=== PATIENT | male | born 1970 | race Caucasian/White ===

== ENCOUNTER 2019-09-25 07:17 | Day surgery (SDC) | payer BC ==
[~2019-09-25] VITALS: Ht 190.5 cm; Wt 105.6 kg
[~2019-09-25 07:17] MED LIST: Aspirin EC81 MG PO; Cleocin HCl150 MG PO; Diovan160 MG PO; Penlac6.6 ML; VALS80 PO; ZOLP10 PO; ZYRTEC10 M2 PO
== END 2019-09-25 09:32 | disposition home or self-care (01) ==
LOC: ORSCSDS 07:17
PROVIDERS: Internal Medicine Gastroenterology
PROC: 0DBM8ZX Excision of Descending Colon, Via Natural or Artificial Opening Endoscopic, Diagnostic (ICD-10-PCS; principal; 2019-09-25 08:30)
PROC: 0DBK8ZX Excision of Ascending Colon, Via Natural or Artificial Opening Endoscopic, Diagnostic (ICD-10-PCS; principal; 2019-09-25 08:30)
PROC: 0DBP8ZX Excision of Rectum, Via Natural or Artificial Opening Endoscopic, Diagnostic (ICD-10-PCS; principal; 2019-09-25 08:30)
DX: Z12.11 Encounter for screening for malignant neoplasm of colon (principal); D12.2 Benign neoplasm of ascending colon; D12.4 Benign neoplasm of descending colon; K62.1 Rectal polyp; I10 Essential (primary) hypertension; E66.9 Obesity, unspecified; Z68.31 Body mass index [BMI] 31.0-31.9, adult; Z79.82 Long term (current) use of aspirin; Z79.899 Other long term (current) drug therapy
CPT/HCPCS: 88305; J0330; J2405; J2704; J7120

== ENCOUNTER 2024-05-15 08:00 | Day surgery (SDC) | payer OTHER ==
[2024-05-15] VITALS (15 sets, daily range): BP systolic 114–141; BP diastolic 78–98
[~2024-05-15] VITALS: Ht 190.5 cm; Wt 113.3 kg
[~2024-05-15 08:00] MED LIST changes: +Lactated Ringer's 1,000 ML IV SCH
--- NOTE | 2024-05-15 09:12 | NUR ---
History, Chart, Medications and Allergies reviewed before start of procedure. Pre-Op teaching done. Pt verbalizes understanding. Patient states colon prep results DARK YELLOW. Patient States Post-Procedure ride home has been arranged WITH JOSEPH.
[2024-05-15] MEDS ORDERED: propofoL 40 ML IV ONE (09:16)
[2024-05-15] MEDS ORDERED: Midazolam HCl 1MG / ML 2ML Vial ONE (09:29)
--- NOTE | 2024-05-15 09:33 | NUR ---
05/15/24 0933 Raleigh Bailey CONFIRMED AND REVIEWED H&P, MEDCICATIONS, ALLERGIES, MEDICAL HISTORY, RESPIRATORY HISTORY, VITAL SIGNS, 3-LEAD EKG, CONSENTS, AND PHYSICIAN ORDERS. PATIENT CONFIRMS NPO STATUS AND AGREES WITH SCHEDULED PROCEDURE. MONITOR INTACT WITH CONTINUOUS PULSE OXIMETRY, CAPNOGRAPHY, 3-LEAD EKG, INTERMITTENT BP. SUPPLEMENTAL O2 TO BE TITRATED THROUGHOUT PROCEDURE TO MAINTAIN O2 SATURATION ABOVE 90%. PATIENT DETERMINED TO BE ASA APPROPRIATE FOR PROPOFOL SEDATION PRIOR TO START OF PROCEDURE BY DR. PATTERSON
--- NOTE | 2024-05-15 10:16 | NUR ---
Patient up to Ambulate independently. Gait steady. Discharge instructions reviewed with patient. Patient verbalizes understanding. Copy given to patient to take home, [facility]. Patient States Post-Procedure ride home has been arranged. Discharged via wheelchair to private car for ride home.
== END 2024-05-15 10:16 | disposition home or self-care (01) ==
LOC: ORSCMMR 08:00 → ORD 09:00 → ORSCMMR 10:16
PROVIDERS: Internal Medicine Gastroenterology
PROC: 0DJD8ZZ Inspection of Lower Intestinal Tract, Via Natural or Artificial Opening Endoscopic (ICD-10-PCS; principal; 2024-05-15 09:00)
DX: Z12.11 Encounter for screening for malignant neoplasm of colon (principal); Z86.010 Personal history of colon polyps; I10 Essential (primary) hypertension; I71.40 Abdominal aortic aneurysm, without rupture, unspecified; Z79.82 Long term (current) use of aspirin; Z79.899 Other long term (current) drug therapy
CPT/HCPCS: J2250; J2704; J7120